=== PATIENT | male | born 1955 | race Caucasian/White ===

== ENCOUNTER 2017-12-02 07:45 | Emergency (ER) | payer OTHER ==
[2017-08-15 09:49] VITALS: Wt 93.0 kg
[~2017-12-02 07:45] MED LIST: ACET500T68 PO; ADV250/50 INH; ASPI-1441 PO; BECL8.7A6 IH; CEF300 PO; CEPH-13 PO; CETI-176 PO; CETI10CA8 PO; CITA-128 PO; CITA-139 PO; CLON-303 *; CYCL10TA29 PO; DOC100 PO; DULERAPT INH; FIN5 PO; FLUT16SP20 NS; FLUT1DIS28 IH; FLUTR; IBUP200C71 PO; IPRA4AER IH; LEV500 PO; LEVO750T44 PO; MON10 PO; MULT-1335 PO; OMAL150V2 SQ; OXYC-373 PO; OXYC-823 PO; PAN40 PO; PER PO; PHENA200 PO; PRE10 PO; PRED-1 PO; PRED20TA6 PO; PROAIRPT IH; RABE20TA33 PO; SIMV-44 PO; SIMV-49 PO; TADA20TA33 PO; TAM4 PO; TAMS0.4C76 PO; [UNRECOGNIZED DRUG - CODE] OT; [UNRECOGNIZED DRUG - OTHER]
--- NOTE | 2017-12-02 07:48 | ER Report ---
History and Physical Time Seen By MD: 07:48 HPI/ROS CHIEF COMPLAINT: Fall onto arm HISTORY OF PRESENT ILLNESS: Patient is a 62-year-old male with no contributory past medical history presents to the emergency department status post slip and fall on the ice onto his flexed right elbow. Patient has pain right around the olecranon REVIEW OF SYSTEMS: Respiratory: No cough, no dyspnea. Cardiovascular: No chest pain, no palpitations. Gastrointestinal: No vomiting, no abdominal pain. Musculoskeletal: No back pain. Right elbow pain Allergies: Coded Allergies: Sulfa (Sulfonamide Antibiotics) (Verified Allergy, Intermediate, RED SKIN , 12/22/14) Uncoded Allergies: HAYFEVER (Allergy, Intermediate, ASTHMA, 02/10/12) Home Meds Active Scripts Hydrocodone Bit/Acetaminophen (HYDROCODON-ACETAMINOPHEN 5-325) 1 Each Tablet, 1 EACH PO Q4-6H Y for PAIN, #12 TAB 0 Refills TAKE ONE TABLET BY MOUTH EVERY 4-6 HOURS NEEDED FOR PAIN Prov:MIRIAM JARAMILLO MD 12/02/17 Reported Medications Benralizumab (Fasenra) 30 Mg/Ml Syringe 12/02/17 Simvastatin (SIMVASTATIN) 20 Mg Tablet, 20 MG PO HS, TAB 08/14/17 Cetirizine Hcl (ZYRTEC) 10 Mg Tablet, 10 MG PO QDAY, TAB 11/15/15 Citalopram Hydrobromide (CITALOPRAM HBR) 20 Mg Tablet, 10 MG PO QDAY, #5 TAB 11/15/15 Tadalafil (CIALIS) 20 Mg Tablet, 20 MG PO QDAY 11/15/15 Multivitamin With Minerals (MULTIPLE VITAMIN) 1 Each Tablet, 1 EACH PO HS, TAB 11/15/15 Beclomethasone Dipropionate 80 Mcg/Act (QVAR 80 MCG/ACT) 8.7 Gm Aer.w.adap, 8.7 GM IH BID 11/15/15 Mometasone/Formoterol (DULERA 200 MCG/5 MCG INHALER) 13 Gm Inh, 13 GM INH BID, INH 11/15/15 Ipratropium/Albuterol Sulfate (COMBIVENT RESPIMAT INHAL SPRAY) 4 Gm Aer.w.adap, 1 EACH IH PRN 11/15/15 Aspirin (Aspirin Ec) 81 Mg Tablet.dr, 81 MG PO DAILY 10/16/11 Pantoprazole Sod (Protonix) 40 Mg Tabec, 40 MG PO DAILY 10/16/11 Montelukast Sodium (Singulair) 10 Mg Tab, 10 MG PO HS, 0 Refills 04/10/10 Discontinued Reported Medications Omalizumab (XOLAIR) 150 Mg Vial, 150 MG SQ [id number], VIAL 11/15/15 Discontinued Scripts Cefdinir 300 Mg Cap (OMNICEF 300 MG CAP (OR EQUIV)) 300 Mg Cap, 300 MG PO BID, # 10 CAP Prov:BELEM LUCAS DO 08/16/17 Prednisone 10 Mg Tab (PREDNISONE 10 MG TAB) 10 Mg Tablet, 10 MG PO DIRECTED, #30 TAB Prov:BELEM LUCAS DO 08/16/17 Past Medical/Surgical History Patient with history of hypertension, hypercholesterol, gastroesophageal reflux disease, asthma Hx Smoking: No (CHEWED 20 YEARS) Smoking Status: Never Smoker Exposure to Second Hand Smoke?: No Hx Substance Use Disorder: No Hx Alcohol Use: Yes Constitutional Vital Sign - Last 24 Hours 12/02/17 12/02/17 12/02/17 12/02/17 07:53 07:53 08:00 08:03 Temp 97.5 Pulse 56 57 Resp 16 B/P (MAP) 129/84 129/84 (99) 100/85 (90) Pulse Ox 94 94 O2 Delivery Room Air 12/02/17 12/02/17 12/02/17 12/02/17 08:15 08:30 08:35 08:50 Pulse 57 56 55 59 B/P (MAP) 108/78 (88) Pulse Ox 91 90 88 87 12/02/17 12/02/17 12/02/17 08:55 09:00 09:05 Temp 98.0 Pulse 55 B/P (MAP) 117/75 (89) Pulse Ox 93 Physical Exam General Appearance: The patient is alert, has no immediate need for airway protection and no current signs of toxicity. Eyes: Pupils equal and round no injection. Respiratory: Chest is non tender, lungs are clear to auscultation. Cardiac: regular rate and rhythm Gastrointestinal: Abdomen is soft and non tender, no masses, bowel sounds normal. Musculoskeletal: Neck: Neck is supple and non tender. Extremities: Right elbow there is some tenderness to the olecranon the patient is able to fully extend at the elbow and has radial and ulnar rotational effects with some discomfort. Examination of the Right hand reveals no acute deformity. The patient is able to give a thumbs up sign, is able to make an okay sign, and is able to AB duct the fingers. Sensation is intact over the dorsal 1st web space, the volar aspect of the 2nd finger, and the volar aspect of the 5th finger. Capillary refill is brisk. Skin: No rashes or lesions. Medical Decision Making ED Course/Re-evaluation ED Course 12/02/2017 9:06:56 am patient with contusion to elbow, x-ray was reported negative by radiology. Plan will be sling and short course of pain medicine followed by range of motion exercises. Patient will be obstructive symptoms persist for more than one week present for reevaluation to his primary care provider. Decision to Disposition Date: Dec 02, 2017 Decision to Disposition Time: 09:06 Depart Departure Latest Vital Signs Vital Signs Date Time Temp Pulse Resp B/P (MAP) Pulse Ox O2 Delivery O2 Flow Rate FiO2 12/02/17 09:05 55 93 12/02/17 09:00 117/75 (89) 12/02/17 08:55 98.0 12/02/17 07:53 16 Room Air Impression: Primary Impression: Elbow contusion Condition: Improved Disposition: HOME OR SELF-CARE Referrals: NETTA AMAYA (PCP) 1 Week If symptoms persist New Scripts Hydrocodone Bit/Acetaminophen (HYDROCODON-ACETAMINOPHEN 5-325) 1 Each Tablet 1 EACH PO Q4-6H Y for PAIN, #12 TAB 0 Refills TAKE ONE TABLET BY MOUTH EVERY 4-6 HOURS NEEDED FOR PAIN Prov: MIRIAM JARAMILLO MD 12/02/17 Departure Forms: ER Transition Record, Medications Reconciliation, Off Work/ School Form, School or Work Release?: Work Number of days to be released: 2 Patient Portal Information Patient Instructions: Contusion in Adults (ED) Additional Instructions: Wear sling for the next 2-3 days. You can discontinue sooner if symptoms improve. If your symptoms do not improve after 7 days you should follow with her primary care provider for reevaluation. Problem Qualifiers Primary Impression: Elbow contusion Encounter type: initial encounter Laterality: right Qualified Codes: S50.01XA - Contusion of right elbow, initial encounter MIRIAM JARAMILLO MD Dec 02, 2017 07:48
[2017-12-02] MEDS ORDERED: BENR30SY (07:59)
[2017-12-02] MEDS ORDERED: IBUPROFEN 600 MG TAB PO ONE (08:35)
[2017-12-02 09:00] VITALS: BP 117/75
--- NOTE | 2017-12-02 09:02 | RADIOLOGY IMAGING REPORT ---
FACILITY: [facility] - [place], [place] PATIENT NAME: Antione Us : 1955 MR: [id number] V: [id number] EXAM DATE: ORDERING PHYSICIAN: MIRIAM JARAMILLO TECHNOLOGIST: [place] [facility] [place] Antione Us : 1955 Visit/Account:[id number] Date of Sevice: 12/02/2017 Exam type: ELBOW 3 VIEWS RIGHT History: Fell on ice this morning Comparison: None. Findings: There is a tiny radiopaque density projecting just medial and inferior to the medial humeral condyle. This is more suggestive of a small domenic of calcium as opposed to a bone chip. There is no adjacen t soft tissue swelling. Otherwise no evidence of acute fracture-dislocation involving the right elbo w. If patient's symptoms persist CT or MR may be helpful IMPRESSION: 1. No evidence of acute fracture-dislocation involving the right elbow. There is a tiny domenic of ca lcium projecting just medial and inferior to the medial humeral epicondyles more likely degenerative in nature than posttraumatic Report Dictated By: Mini Escobedo MD at 12/02/2017 8:54 AM Report E-Signed By: Mini Escobedo MD at 12/02/2017 8:57 AM WSN:[email or web address]
[2017-12-02] MEDS ORDERED: LOR5/325 PO (09:09)
== END 2017-12-02 09:31 | disposition home or self-care (01) ==
LOC: ER 07:51
DX: S50.01XA Contusion of right elbow, initial encounter (principal); W00.0XXA Fall on same level due to ice and snow, initial encounter
CPT/HCPCS: 73080; 99283; A4565